=== PATIENT | male | born 1980 | race Caucasian/White ===

== ENCOUNTER 2025-09-15 01:16 | Emergency (ER) | payer MEDICAID | END 2025-09-15 02:20 | disposition home or self-care (01) | LOC: JD.ED 01:16 | DX: S91.012A Laceration without foreign body, left ankle, initial encounter (principal); E66.9 Obesity, unspecified; E11.9 Type 2 diabetes mellitus without complications; J45.909 Unspecified asthma, uncomplicated; I10 Essential (primary) hypertension; Z79.899 Other long term (current) drug therapy; Z79.51 Long term (current) use of inhaled steroids; Z79.891 Long term (current) use of opiate analgesic; W25.XXXA Contact with sharp glass, initial encounter | CPT/HCPCS: 12002; 73610-26-LT; 73610-LT; 99283-25 ==